=== PATIENT | male | born 1960 | race Two or more races ===

== ENCOUNTER 2016-12-01 08:27 | Emergency (ER) | payer OTHER ==
[2016-12-01 09:24] LABS: CALCIUM 8.5 mg/dL (8.5-10.1); CARBON DIOXIDE 25.3 mmol/L (21-32); CHLORIDE SERUM 106 mmol/L (98-107); GFR1 > 60 mL/min; GLUCOSE SERUM 151 mg/dL (74-106); POTASSIUM SERUM 3.4 mmol/L (3.5-5.1); SODIUM SERUM 141 mmol/L (136-145)
[2016-12-01 09:29] LABS: ALBUMIN 3.4 g/dL (3.4-5.0); ALKALINE PHOSPHATASE 108 U/L (46-116); ALT/SGPT 25 U/L (16-63); AST/SGOT 15 U/L (15-37); BILIRUBIN TOTAL 0.37 mg/dL (0.20-1.00); CHOLESTEROL 177 mg/dL (<200); TOTAL PROTEIN, SERUM 7.1 g/dL (6.4-8.2)
[2016-12-01 09:33] LABS: BASOPHIL % 0.4 % (0-2); PLATELET COUNT 267 x10^3mcL (130-400)
[2016-12-01 09:41] LABS: RED CELL DISTRIBUTION WIDTH 16.1 % (11.5-14.5)
[2016-12-01 11:27] VITALS: BP 165/101
== END 2016-12-01 13:20 | disposition home or self-care (01) ==
LOC: ED 08:27
PROVIDERS: Emergency Medicine
DX: R53.1 Weakness (principal); I10 Essential (primary) hypertension
CPT/HCPCS: 83880; G0480

== ENCOUNTER 2016-12-04 01:44 | Emergency (ER) | payer OTHER ==
[2016-12-04 02:32] LABS: PLATELET COUNT 292 x10^3mcL (130-400)
[2016-12-04 02:34] LABS: BASOPHIL % 2.5 % (0-2); RED CELL DISTRIBUTION WIDTH 15.3 % (11.5-14.5)
[2016-12-04 02:37] LABS: CALCIUM 8.5 mg/dL (8.5-10.1); CARBON DIOXIDE 26.8 mmol/L (21-32); CHLORIDE SERUM 105 mmol/L (98-107); CREATININE SERUM 1.1 mg/dL (0.7-1.3); GFR1 > 60 mL/min; GLUCOSE SERUM 108 mg/dL (74-106); POTASSIUM SERUM 3.8 mmol/L (3.5-5.1); SODIUM SERUM 140 mmol/L (136-145)
[2016-12-04 02:44] LABS: ALBUMIN 3.6 g/dL (3.4-5.0); ALKALINE PHOSPHATASE 99 U/L (46-116); ALT/SGPT 27 U/L (16-63); AST/SGOT 17 U/L (15-37); BILIRUBIN TOTAL 0.67 mg/dL (0.20-1.00); TOTAL PROTEIN, SERUM 7.5 g/dL (6.4-8.2)
[2016-12-04 04:08] VITALS: BP 139/104
== END 2016-12-04 04:08 | disposition home or self-care (01) ==
LOC: ED 01:44
PROVIDERS: Specialist
DX: R07.9 Chest pain, unspecified (principal); I10 Essential (primary) hypertension
CPT/HCPCS: 83880; J3490